=== PATIENT | male | born 1930 | race Caucasian/White ===

== ENCOUNTER 2017-06-13 18:36 | Emergency (ER) | payer MEDICARE, BC ==
--- NOTE | ~2017-06-13 | ER ---
PATIENT'S NAME: ROXY CLAY [facility] AGE: 86 Y [address] ROOM: [place] [address] LOCATION: [facility] ADMIT DATE: 06/13/2017 ER/Outpatient Report DISCHARGE DATE: 06/13/2017 FAMILY PHYSICIAN: Zafar Nolen MD ATTENDING PHYSICIAN: Rubén Logan Time of Arrival: 1827 hours. Time of Assessment: 1827 hours. CHIEF COMPLAINT: Fall. HISTORY OF PRESENT ILLNESS: The patient states that he was out working and tripped over a wheel on a go- kart and hit his head and right shoulder. He is complaining of pain in his right shoulder and cervical spine. He denies currently having a headache or any vision changes. He states that he has chronic back pain and has had multiple surgeries, and his pain in his back is currently no worse than usual. He does state that his right hand does not seem to be working as well as usual. His right hand has chronic deficits, secondary to carpal tunnel. He currently denies any shortness of breath or chest pain. He also denies any nausea, vomiting, or diarrhea. PAST MEDICAL HISTORY: The patient has had about 5 back surgeries, surgery to his left shoulder, tonsillectomy, appendectomy, and a colon fissure surgery. He has had a neurostimulator placed in his back. He also has restless legs syndrome. SOCIAL HISTORY: The patient is a former smoker, but quit back in 2000. He states he has not had a drink since 1997. Denies drugs or chewing tobacco. He denies any thoughts of harming himself or others or having a decreased energy or motivation in the past 2 weeks. MEDICATIONS: 1. Ropinirole. 2. Duloxetine. The patient states his duloxetine just came in the mail today, and he has not taken a single dose yet. ALLERGIES: NO KNOWN ALLERGIES. PATIENT'S NAME: ROXY CLAY [facility] AGE: 86 Y [address] ROOM: [place] [address] LOCATION: [facility] ADMIT DATE: 06/13/2017 ER/Outpatient Report DISCHARGE DATE: 06/13/2017 FAMILY PHYSICIAN: Zafar Nolen MD ATTENDING PHYSICIAN: Rubén Logan REVIEW OF SYSTEMS: A full review of systems was done by me and negative with the exception of those discussed in the HPI. PHYSICAL EXAMINATION: VITAL SIGNS: The patient's weight is 71.5, blood pressure 167/77, pulse 67, respiratory rate 16, temperature of 97.8, and saturating 98% on room air. Micah coma scale of 15. GENERAL: The patient is alert and oriented x3. HEENT: His pupils are equal and reactive to light, and his extraocular movements are intact. There is blood all over his face, and he has an abrasion in the center of his forehead and a cut on the bridge of his nose. CHEST: The patient's chest is clear to auscultation with good air entry bilaterally. He does not have tenderness to palpation of his chest. CARDIOVASCULAR: His heart rate is regular in rate and rhythm. No murmurs appreciated. ABDOMEN: Soft. Nontender. Bowel sounds are normal. MUSCULOSKELETAL: The patient has tenderness to palpation of his cervical spine and his right shoulder. He has thenar wasting of his right hand and a well-healing scar in the palm of his right hand. No other abrasions or lacerations noted on the patient. LABS AND X-RAYS: CBC was done that was normal with the exception of his platelets, which were 148. Coag studies were normal. CMS was done that was normal with the exception of an anion gap of 8.9 and glucose of 101. A chest x-ray was done that showed no acute infiltrates. The right shoulder x-ray was also done that showed no fracture, separation, or dislocation. CT head was done that was normal with the exception of atrophy. Facial bone CT also was done that showed a fracture of the tip of the nasal bone that was nondisplaced. No other fractures were seen. C-spine CT showed degenerative changes, but no acute fractures; T-spine also showed degenerative changes, but no acute fractures; and L-spine also showed degenerative changes, but no acute fractures. IMPRESSION: Fall with several abrasions and laceration. EMERGENCY DEPARTMENT COURSE: Full history and physical were performed. Labs and imaging were done that showed no acute severe injuries. The patient was cleaned up and laceration was closely inspected on the nasal bridge. I determined that the laceration could not be closed, so triple antibiotic cream was placed and covered with a Band-Aid. The patient was sat up in his bed and then got up and walked around, and was feeling improved. PATIENT'S NAME: ROXY CLAY [facility] AGE: 86 Y [address] ROOM: [place] [address] LOCATION: [facility] ADMIT DATE: 06/13/2017 ER/Outpatient Report DISCHARGE DATE: 06/13/2017 FAMILY PHYSICIAN: Zafar Nolen MD ATTENDING PHYSICIAN: Rubén Logan DISPOSITION: The patient was then discharged to home with his in good condition with instructions to change the Band-Aid on his nose every 2 days with a triple antibiotic cream and then follow up with his PCP early next week. JOSEFINA SANTIZO MD FOR RUBÉN LOGAN MD KV/modl /[id number] d: 06/14/17 0154 t: 06/30/17 1159, OUTPATIENT REPORT
--- NOTE | ~2017-06-13 | ER ---
PATIENT'S NAME: ROXY CLAY [facility] AGE: 86 Y [address] ROOM: [place] [address] LOCATION: [facility] ADMIT DATE: 06/13/2017 ER/Outpatient Report DISCHARGE DATE: 06/13/2017 FAMILY PHYSICIAN: Zafar Nolen MD ATTENDING PHYSICIAN: Danny Colin HISTORY OF PRESENT ILLNESS: This patient is an 86-year-old male who had a ground level fall. He fell face- first. He has pain in his forehead along with abrasion to the midforehead and pain in his nose with abrasion across the bridge of the nose. He had epistaxis. He complains of facial pain, head pain, neck pain, and spine pain. I did see this patient along with Dr. Jeff Figueroa, resident in family practice working in the in the emergency room with me lesly. See Dr. Figueroa's dictation in regard to the chief complaint, history of present illness, past medical history, and physical exam. X-rays of his right shoulder showed no fracture, dislocation, or separation. X-ray of the chest showed no acute infiltrate. CT scan of the head showed no intracranial bleed, midline shift, mass effect, or skull fracture. Did have some atrophy. CT scan of the facial bone shows nondisplaced fracture, tip of the nose; otherwise, no other facial bone fractures. CT scan of the cervical, thoracic, and lumbosacral spine showed degenerative changes, no acute fractures. All CT scans and x-rays were read by Radiology, see reports. I agree with Dr. Figueroa's final impression, diagnosis, and treatment plan. See his dictated summary. MD JUANITO NIEVES/modl /[id number] d: 06/14/17 0029 t: 06/14/17 1821, OUTPATIENT REPORT
[2017-06-13 19:17] LABS: BASOPHIL % 0.6 %; EOSINOPHIL # 0.1 K/uL (0.0-0.5); EOSINOPHIL % 1.5 %; HEMATOCRIT 39.2 % (33.0-50.0); HEMOGLOBIN 13.4 g/dL (11.0-16.0); IMMATURE GRANULOCYTE % 0.2 %; LYMPHOCYTE # 0.7 K/uL (0.8-4.0); MCHC 34.2 gm/dL (32.0-36.5); MCV 93.6 fl (83.0-98.0); MONOCYTE # 0.6 K/uL (0.0-1.0); MONOCYTE % 10.8 %; MPV 8.8 fl (9.4-12.4); NEUTROPHIL % 73.9 %; NRBC % 0 /100WBC (0-0.00); PLATELET COUNT 148 K/uL (150-450); RBC 4.19 M/uL (3.50-5.50); RDW-CV 12.3 % (11.9-14.6); WBC 5.5 K/uL (4.0-11.0)
[2017-06-13 19:23] LABS: INR - (THERAPEUTIC) 0.96 (0.92-1.07); PROTIME 10.1 SECONDS (9.8-11.4); PTT 25 SECONDS (25-32)
[2017-06-13 19:29] LABS: ALBUMIN 3.5 gm/dL (3.5-5.0); ANION GAP 8.9 (10.0-19.0); CALCIUM 8.8 mg/dL (8.5-10.5); POTASSIUM 3.9 mMol/L (3.7-5.1); TOTAL BILIRUBIN 0.7 mg/dL (0.0-1.5); TOTAL PROTEIN 6.7 g/dL (6.0-8.4)
== END 2017-06-13 20:48 | disposition disaster alternative care site (69) ==
LOC: GACC 18:36
PROVIDERS: Emergency Medicine
DX: S01.21XA Laceration without foreign body of nose, initial encounter (principal); S00.81XA Abrasion of other part of head, initial encounter; G25.81 Restless legs syndrome; Z87.891 Personal history of nicotine dependence; Z79.899 Other long term (current) drug therapy; Z90.49 Acquired absence of other specified parts of digestive tract; Z90.89 Acquired absence of other organs; Z97.8 Presence of other specified devices; W01.198A Fall on same level from slipping, tripping and stumbling with subsequent striking against other object, initial encounter